=== PATIENT | female | born 1985 | race Caucasian/White ===

== ENCOUNTER → 2018-12-17 | Outpatient (CLI) | payer MEDICAID ==
--- NOTE | 2018-12-18 16:08 | KCIC ---
EXAM: 3 views of the lumbar spine DATE: 12/17/2018 12:00 AM INDICATION: Low back pain COMPARISON: No Prior FINDINGS: There are 5 nonrib-bearing lumbar-type vertebral bodies. Vertebral body heights are preserved. Intervertebral disc heights are preserved. No spondylolisthesis. IMPRESSION: 1. Negative acute fracture or subluxation. Electronically signed by: Gaetano Vega MD (12/18/2018 4:05 PM) [facility]
== END | disposition home or self-care (01) ==
LOC: KCIC 12:38
PROVIDERS: ATTEND Internal Medicine
DX: M54.5 Low back pain (principal)
CPT/HCPCS: 72100